=== PATIENT | male | born 1995 | race Caucasian/White ===

== ENCOUNTER 2021-01-06 03:27 | Emergency (ER) | payer SELFPAY ==
[2021-01-06 03:27] VITALS: BP 127/78; PULSE 88; RESP 22; O2SAT 100
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
== END 2021-01-06 03:37 | disposition left against medical advice (07) ==
DX: R07.9 Chest pain, unspecified (principal)
CPT/HCPCS: 99199